=== PATIENT | male | born 1965 | race Caucasian/White ===

== ENCOUNTER 2021-10-21 07:29 | Emergency (ER) | payer MEDICAID, SELFPAY ==
[~2021-10-21] VITALS: Ht 175.3 cm; Wt 74.8 kg
[2021-10-21 07:29] VITALS: BP_SYST 136
[2021-10-21] MEDS ORDERED: VANCOMYCIN HCL 1,000 MG in NS 250 ML IV ONE (07:45)
[2021-10-21] MEDS ORDERED: KETOROLAC TROMETHAMINE 30 MG VIAL IVP ONE (07:45)
[2021-10-21] MEDS ORDERED: LIDOCAINE 1% 10 MG/ML, 20 ML MDV INJ ONE (08:00)
[2021-10-21] MEDS ORDERED: DIPH-TET-PERTUS Vaccine 0.5 ML VIAL (ADACEL) I.M. ONE (08:45)
[2021-10-21] MEDS ORDERED: BACITRACIN 1 GM OINT TP ONE ×2 (09:15→09:17)
[2021-10-21] MEDS ORDERED: VANCOMYCIN HCL 1000 MG/VIAL IV ONE (09:22)
[2021-10-21] MEDS ORDERED: CEPH-548 PO (11:32)
[2021-10-21] MEDS ORDERED: NAPR-1172 PO (11:32)
[2021-10-21 11:56] VITALS: BP_SYST 128
== END 2021-10-21 11:58 | disposition home or self-care (01) ==
LOC: SED 07:29
DX: L02.512 Cutaneous abscess of left hand (principal)
CPT/HCPCS: 26010; 36415; 73140; 87040; 90471; 90715; 96365; 96366; 96375; 99284; J1885; J2001; J3370

== ENCOUNTER 2022-06-10 01:13 | Emergency (ER) | payer MEDICAID ==
[~2022-06-10] VITALS: Ht 175.3 cm; Wt 72.6 kg
[~2022-06-10 01:13] MED LIST: CEPH-548 PO; NAPR-1172 PO
--- NOTE | 2022-06-10 01:15 | NUR ---
PEDRO HELTON BIB W/C BY PEDRO MOULTON. C/O SEVERE LOWER RIGHT QUAD ABD PAIN X 1-2 HOURS TONIGHT. HX; KIDNEY STONES PER PT. NKA.
[2022-06-10 01:21] VITALS: BP_SYST 132
--- NOTE | 2022-06-10 02:30 | NUR ---
PT WALKING AROUND ER, FOUND ON FLOOR NEAR BED #8, BATHROOM HALWAY. YELLING AT STAFF NONCOOPERATIVE. you're not helping me, i'm in pain!". PT WALKED BACK TO ROOM #6, BY COMPLIANCE ASSISTANT AND PEDRO BENNETT. ER MEDS GIVEN PER ORDERS, SECURITY AT DOOR. PT TOLD NOT TO WANDER IN THE ER.
[2022-06-10] MEDS ORDERED: ONDANSETRON HCL 4 MG/2 ML VIAL IVP ONE (02:45)
[2022-06-10] MEDS: KETOROLAC TROMETHAMINE 30 MG VIAL IVP ONE (02:51)
[2022-06-10] MEDS: ONDANSETRON HCL 4 MG/2 ML VIAL IVP ONE (02:52)
[2022-06-10] MEDS: NACL 0.9% 1,000 ML IV ONE (02:52)
[2022-06-10 03:10] LABS: BASOPHILS # (AUTO) 0.1 K/uL (0.0-0.2); BASOPHILS % (AUTO) 1.1 % (0.0-2.0); EOSINOPHILS # (AUTO) 0.1 K/uL (0.0-0.4); EOSINOPHILS % (AUTO) 0.8 % (0.0-4.0); HEMATOCRIT 39.5 % (36-54); HEMOGLOBIN 13.7 g/dL (14.0-18.0); LYMPHOCYTES # (AUTO) 1.9 K/uL (1.0-5.5); LYMPHOCYTES % (AUTO) 27.7 % (20.5-51.5); MEAN CORPUSCULAR HEMOGLOBIN 31 pg (27-31); MEAN CORPUSCULAR HGB CONC 35 % (32-36); MEAN CORPUSCULAR VOLUME 88 fL (79.0-98.0); MONOCYTES # (AUTO) 0.5 K/uL (0.0-1.0); MONOCYTES % (AUTO) 7.2 % (1.7-9.3); NEUTROPHILS # (AUTO) 4.4 K/uL (1.8-7.7); NEUTROPHILS % (AUTO) 63.2 % (40.0-70.0); PLATELET COUNT (AUTO) 172 K/uL (130-430); RED BLOOD CELL COUNT(AUTO) 4.48 MIL/uL (4.2-6.2); RED CELL DISTRIBUTION WIDTH 13.9 % (9.0-15.0)
--- NOTE | 2022-06-10 03:32 | NUR ---
RETURN FROM CT SCAN VIA [facility] WITH FELISHA. NO C/O PAIN OR NAUSEA AT THIS TIME VSS CONTINUED MONITORING
[2022-06-10 03:43] LABS: CREATININE 1.09 mg/dL (0.55-1.30); POTASSIUM 3.6 mmol/L (3.5-5.1)
[2022-06-10 03:49] LABS: ALBUMIN 3.5 g/dL (3.4-4.8); TOTAL BILIRUBIN 0.2 mg/dL (0.0-1.0)
--- NOTE | 2022-06-10 04:55 | NUR ---
UA COLLECTED AND SENT TO LAB. PT SLEEPING. RESP EVEN/ UNLABORED. VSS CONTINUED MONITORING. NO C/O N/V OR PAIN AT THIS TIME
[2022-06-10 05:12] LABS: BILIRUBIN,URINE NEGATIVE (NEGATIVE); CLARITY/URINE CLEAR (CLEAR); COLOR,URINE YELLOW (YELLOW); GLUCOSE,URINE TRACE (NEGATIVE); KETONES,URINE 1+ (NEGATIVE); LEUKOCYTE ESTERASE ,URINE NEGATIVE (NEGATIVE); NITRITE, URINE NEGATIVE (NEGATIVE); PROTEIN URINE NEGATIVE (NEGATIVE); UROBILINOGEN,URINE 0.2 (0.2-1.0)
[2022-06-10 05:21] LABS: BLOOD, URINE TRACE (NEGATIVE)
--- NOTE | 2022-06-10 06:12 | NUR ---
PT WILL BE DISCHARGE BY DR. HANSON. WILL ORDER MORE PAIN MEDICATION. NEEDS FRIEND/ FAMILY TO CALL [facility]. PT NASKED X2 TO CALL FRIEND/ FAMILY TO CALL [facility], "I WILL", THEN FALLS ASLEEP.
[2022-06-10] MEDS ORDERED: HYDR-3917 PO (06:21)
[2022-06-10 06:48] VITALS: BP_SYST 153
--- NOTE | 2022-06-10 06:49 | NUR ---
PT STABLE FOR D/C TO GO HOME. IV D/C'D TO LEFT FOREARM WITH CATH INTACT AND PRESSURE DRESSING APPLIED. VSS NO VOMITING PAIN LEVAL 01/11. TO LOBBY AMB WITH ALL PAPERWORK IN HAND
== END 2022-06-10 06:48 | disposition home or self-care (01) ==
LOC: SED 01:13
DX: N23 Unspecified renal colic (principal); R11.0 Nausea; I10 Essential (primary) hypertension; Z79.899 Other long term (current) drug therapy
CPT/HCPCS: 99284; 74176; 96374; 96361; 96375; 80053; 83690; 85025; 36415; 76376; 81003; J1885; J2405; J7030